=== PATIENT | female | born 1980 | race Hispanic/Latino ===

== ENCOUNTER 2022-09-23 16:56 | Emergency (ER) | payer OTHER ==
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
== END 2022-09-23 18:25 | disposition home or self-care (01) ==
LOC: ER 16:56
DX: S16.1XXA Strain of muscle, fascia and tendon at neck level, initial encounter (principal)
CPT/HCPCS: 70450; 72125